=== PATIENT | female | born 1970 | race Caucasian/White ===

== ENCOUNTER 2019-01-18 15:31 | Emergency (ER) | payer MEDICAID ==
[~2019-01-18] VITALS: Ht 152.4 cm; Wt 72.0 kg
[2019-01-18] MEDS ORDERED: IBUPROFEN 600MG TABLET PO ONE (19:00)
[2019-01-18 19:09] VITALS: BP 147/82
== END 2019-01-18 19:10 | disposition home or self-care (01) ==
LOC: ER 15:31
DX: M54.40 Lumbago with sciatica, unspecified side (principal)
CPT/HCPCS: 99282